=== PATIENT | male | born 1945 | race Caucasian/White ===

== ENCOUNTER 2018-03-10 00:06 | Emergency (ER) | payer MEDICARE, OTHER ==
[~2018-03-10] VITALS: Ht 177.8 cm; Wt 95.2 kg
[~2018-03-10 00:06] MED LIST: AMIODARONE HCL400 MG PO; ASPIRIN EC81 MG PO; COLACE100 MG PO; FOLIC ACID0.4 MG; HYDROCODON-ACE1 EA14 PO; IRON325 M1 PO; LIPITOR10 MG; LISINOPRIL2.5 MG PO; METOPROLOL TART25 MG PO; PLAVIX75 MG PO; VITAMIN C500 M1 PO; VITAMIN D-32000 UNIT PO
[2018-03-10] MEDS ORDERED: PLAVIX75 MG PO (00:20)
[2018-03-10] MEDS ORDERED: CRESTOR40 MG NG (00:20)
[2018-03-10] MEDS ORDERED: ZETIA10 MG PO (00:22)
--- NOTE | 2018-03-10 22:59 | EKG ---
[facility] [address] [facility] [place] [address] Signed Sinus bradycardia RSR' or QR pattern in V1 suggests right ventricular conduction delay Borderline ECG No previous ECGs available Confirmed by CLAUDIO BAUGH MD ([id number]) on 03/10/2018 10:58:51 PM Electronically Signed By: CLAUDIO BAUGH MD 03/10/18 2259 PATIENT NAME: JOSE ADAM Electrocardiogram DATE OF : 45 PHYSICIAN: CLAUDIO BAUGH MD REPORT #: [id number] REPORT IS CONFIDENTIAL AND NOT TO BE RELEASED WITHOUT AUTHORIZATION
== END 2018-03-10 01:57 | disposition home or self-care (01) ==
LOC: ED 00:06
DX: I49.3 Ventricular premature depolarization (principal); I10 Essential (primary) hypertension; Z79.82 Long term (current) use of aspirin; Z79.899 Other long term (current) drug therapy; Z95.1 Presence of aortocoronary bypass graft
CPT/HCPCS: 71045; 80053; 84484; 85025; 85610; 85730; 93005; 93010; 99285-25

== ENCOUNTER 2023-02-14 16:33 | Inpatient (IN) | payer MEDICARE, OTHER ==
[~2023-02-14] VITALS: Ht 177.8 cm; Wt 101.6 kg
--- NOTE | ~2023-02-14 | EKG ---
[facility] [address] [facility] [place], [place] [address] Draft EKG completed, results pending confirmation PATIENT NAME: KIAJOSE Electrocardiogram DATE OF : 45 PHYSICIAN: PRELIMINARY REPORT #: [id number] REPORT IS CONFIDENTIAL AND NOT TO BE RELEASED WITHOUT AUTHORIZATION
[~2023-02-14 16:33] MED LIST changes: +ADULT ASPIRIN R81 MG PO; -ASPIRIN EC81 MG PO; +CRESTOR40 MG NG; -VITAMIN D-32000 UNIT PO; +VITAMIN D350 MC3 PO; +ZETIA10 MG PO
[2023-02-14] MEDS ORDERED: LOSARTAN POTASS25 MG PO (16:53)
[2023-02-14 19:03] LABS: BASOPHILS 0.3 % (0-2); EOSINOPHILS 0.2 % (0-6); HEMATOCRIT 41.7 % (35.0-50.0); HEMOGLOBIN 13.7 g/dL (12.0-18.0); LYMPHOCYTES 11.9 % (24-44); MCH 30.5 (27-36); MCHC 32.7 g/dl (30-36); MCV 93.2 fl (81-99); MONOCYTES 7.4 % (0-12); NEUTROPHILS 80.2 % (39-80); PLATELET COUNT 239 K/uL (140-440); RBC 4.48 M/ul (4.3-5.7); RDW 13.7 (10.5-15.0)
[2023-02-14 19:14] LABS: ALBUMIN 4.2 g/dL (3.4-5.0); ALBUMIN/GLOBULIN RATIO 1.24 (1.1-2.4); ANION GAP 14.6 (7-21); BILIRUBIN, TOTAL 0.8 ng/dL (0.2-1.0); BUN/CREATININE RATIO 19.19 (6.0-28.6); CALCIUM 9.2 mg/dL (8.5-10.1); CREATININE, SERUM 0.99 mg/dL (0.70-1.30); POTASSIUM 4.6 mmol/L (3.5-5.1); PROTEIN, TOTAL 7.6 g/dL (6.4-8.2)
[2023-02-14 22:08] LABS: BILIRUBIN, URINE NEGATIVE (negative); BLOOD/HGB, URINE NEGATIVE (Negative); KETONE, URINE TRACE (Negative); LEUK ESTERASE, URINE NEGATIVE (negative); NITRITE, URINE NEGATIVE (negative); PH, URINE 5.5 (5-7)
[2023-02-14 23:26] LABS: INFLUENZA B NAA NEGATIVE (NEGATIVE); RESPIRATORY SYNCYTIAL VIR NAA NEGATIVE (NEGATIVE)
--- NOTE | 2023-02-14 23:30 | NUR ---
PT TRANSPORTED TO 128 VIA STRETCHER BY PAULA RODRIGUEZ. PT A&O X4.
[2023-02-15] VITALS (18 sets, daily range): BP systolic 95–122; BP diastolic 49–74
[2023-02-15 00:09] LABS: BASOPHILS 0.2 % (0-2); HEMATOCRIT 41.4 % (35.0-50.0); HEMOGLOBIN 13.5 g/dL (12.0-18.0); LYMPHOCYTES 6.1 % (24-44); MCH 30.6 (27-36); MCHC 32.7 g/dl (30-36); MCV 93.6 fl (81-99); MONOCYTES 5.9 % (0-12); NEUTROPHILS 87.8 % (39-80); PLATELET COUNT 224 K/uL (140-440); RBC 4.42 M/ul (4.3-5.7); RDW 13.8 (10.5-15.0)
--- NOTE | 2023-02-15 00:53 | NUR ---
ADMISSION ASSESSMENT COMPLETE. PT DAUGHTER ARTURO ROOMING IN OVERNIGHT. PT REQUESTED AND PROVIDED PAIN MEDICATION PER EMAR. PT ORIENTED TO UNIT. PT VERBALIZES UNDERSTANDING TO USE CALL LIGHT WITH NEEDS. BED IN LOW, LOCKED POSITION. SCD'S IN PLACE, PT EDUCATED TO PURPOSE. PT DENIES ADDITIONAL QUESTIONS OR NEEDS AT THIS TIME. VSS AND NAD NOTED VIA PT STATEMENT, DIRECT OBS AND CONTINUOUS MONITOR.
--- NOTE | 2023-02-15 02:11 | NUR ---
PT RESTING IN BED WITH EYES CLOSED. VSS PER CONTINUOUS MONITOR. DAUGHTER ROOMING IN. CALL LIGHT IN REACH.
--- NOTE | 2023-02-15 04:10 | NUR ---
SHIFT ASSESSMENT COMPLETE. SEE [facility]. PT 02 SAT 87-88% ON RA WHILE SLEEPING. PT PLACED ON 1L NC TO MAINTAIN O2 SAT >90%. PT EDUCATED TO NEED FOR O2 SUPPORT. PT DENIES PREVIOUS DIAGNOSIS OF MARIAMA. PT STATES PER HE DOES SNORE. PT DENIES ADDITIONAL NEEDS. DAUGHTER AT BEDSIDE. CALL LIGHT IN REACH. BED IN LOW, LOCKED POSITION. SCD'S IN PLACE. MAINTENANCE FLUIDS INFUSING PER ORDERS IN PATENT PIV.
[2023-02-15 05:29] LABS: BASOPHILS 0.2 % (0-2); EOSINOPHILS 0.1 % (0-6); HEMATOCRIT 34.5 % (35.0-50.0); HEMOGLOBIN 11.9 g/dL (12.0-18.0); LYMPHOCYTES 11.1 % (24-44); MCHC 34.5 g/dl (30-36); MCV 92.8 fl (81-99); MONOCYTES 9.9 % (0-12); NEUTROPHILS 78.7 % (39-80); PLATELET COUNT 197 K/uL (140-440); RBC 3.72 M/ul (4.3-5.7); RDW 13.8 (10.5-15.0)
[2023-02-15 05:50] LABS: ALBUMIN 3.2 g/dL (3.4-5.0); ALBUMIN/GLOBULIN RATIO 1.1 (1.1-2.4); ANION GAP 14.4 (7-21); BILIRUBIN, TOTAL 0.7 ng/dL (0.2-1.0); BUN/CREATININE RATIO 21.05 (6.0-28.6); CALCIUM 8.2 mg/dL (8.5-10.1); CREATININE, SERUM 0.95 mg/dL (0.70-1.30); POTASSIUM 4.4 mmol/L (3.5-5.1); PROTEIN, TOTAL 6.1 g/dL (6.4-8.2)
--- NOTE | 2023-02-15 07:19 | NUR ---
REPORT GIVEN AND CARE ENDORSED TO ONCOMING SHIFT RNS. PT VSS AND NAD NOTED VIA CONTINUOUS MONITOR. ALL QUESTIONS ANSWERED.
--- NOTE | 2023-02-15 08:15 | NUR ---
VITALS AND I&OS CHARTED. PATIENT AWAKE AND LYING ON BED, USING CELL PHONE. DAUGHTER IN ROOM. PATIENT IS NPO, TOOTHPASTE AND WASHCLOTH PROVIDED. PATIENT STANDS AT SIDE OF BED TO USE URINAL
--- NOTE | 2023-02-15 08:28 | NUR ---
UR NOTE MCG GENERAL CRITERIA: OBSERVATION CARE (ISC) 02/14/23 MET OBSERVATION CARE ADMISSION CRITERIA
[2023-02-15] MEDS ORDERED: METOPROLOL SUCC50 MG PO (10:42)
[2023-02-15] MEDS ORDERED: NITROGLYCERIN0.4 MG SL (10:42)
--- NOTE | 2023-02-15 10:52 | NUR ---
Patient sitting up on edge of bed, oxygen in place. Alert and oriented. Spouse at bedside. Demographics verified with patient and spouse. States he has [employer] insurance as well, card copied and sent to admitting. Patient states he lives in single level house with . 2 steps to get inside, no issues using the steps. States he has no DME, does not usually need any. Continues to drive. No financial burdens either. Denies needs at this time, instructed to notify staff if needs arise. Verbalizes understanding.
--- NOTE | 2023-02-15 11:03 | NUR ---
CCU ROUNDS. 30 MINUTES. REFRAMED PT EXPERIENCE. ENCOURAGED ELF CARE. PROVIDED HOSPITALITY. LISTENED EMPATHETICALLY. LEFT WHEN RESEARCH PROGRAM ASSISTANT SILVIA CAME IN TO TRANSPORT PT TO IMAGING. PROVIDED SILENT PRAYER.
--- NOTE | 2023-02-15 12:49 | NUR ---
MED REC COMPLETE
--- NOTE | 2023-02-15 12:56 | NUR ---
1100 DISCUSSED POC W/ PT AND FAMILY, FAMILY ASKED ABOUT CHANGING DIET ORDER, THIS RN LET THEM KNOW THAT WE WILL REVISIT DIET ORDER AFTER LAB DRAW THIS AFTERNOON. DISCUSSED CXR WITH PT, PROVIDED EDUCATION ABOUT THE IMPORTANCE OF COUGHING & DEEP BREATHING TO PREVENT PNA, PT VERBALIZED UNDERSTANDING OF THIS. CALL LIGHT AND OTHER BELONGINGS IN REACH
[2023-02-15 13:28] LABS: BASOPHILS 1.2 % (0-2); EOSINOPHILS 0.4 % (0-6); HEMATOCRIT 35.5 % (35.0-50.0); HEMOGLOBIN 11.8 g/dL (12.0-18.0); LYMPHOCYTES 15.2 % (24-44); MCH 31.2 (27-36); MCHC 33.1 g/dl (30-36); MCV 94.1 fl (81-99); MONOCYTES 13.4 % (0-12); NEUTROPHILS 69.8 % (39-80); PLATELET COUNT 176 K/uL (140-440); RBC 3.77 M/ul (4.3-5.7)
--- NOTE | 2023-02-15 15:30 | NUR ---
CALLED SURGERY TO TALK TO DR AGUILAR, HE WAS IN A PROCEDURE, ASKED RN TO HAVE HIM CALL CCU WHEN FINISHED TO DISCUSS PT
--- NOTE | 2023-02-15 16:20 | NUR ---
IN TO CHECK ON PT, HE IS RATING HIS PAIN 3/10 ALTHOUGH HE IS WANTING TO GET UP TO USE THE BATHROOM BUT FEARFL OF THE PAIN, PRN OXYCODONE 10MG GIVEN AND PLAN TO GIVE MEDICATION TIME TO WORK AND THEN GET UP TO BATHROOM WELL APPLY ABX OINTMENT TO SCROTUM, PT AGREEABLE.
--- NOTE | 2023-02-15 16:55 | NUR ---
IN TO CHECK ON PT AND HE IS SLEEPING, HR 103, RR 16.
--- NOTE | 2023-02-15 20:45 | NUR ---
REPORT TAKEN FROM PREVIOUS SHIFT. PT IS RESTING IN BED WITH FAMILY AT BEDSIDE. PT ASSESSED, VITAL SIGNS WITHIN NORMAL LIMITS. PT DENIES ANY PAIN AT THIS TIME. PT STANDING AT BEDSIDE, UP TO USE THE URINAL. PT IS STEADY ON FEET. ALL QUESTIONS AND CONCERNS ARE ADDRESSED AT THIS TIME. 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 LOPRESSOR HELD, PT IS BRADYCARDIC AND SLIGHTLY HYPOTENSIVE. PT BED IS LOWERED AND LOCKED, 2/4 BED SIDERAILS IN USE. CALL LIGHT WITH IN REACH.
--- NOTE | 2023-02-15 22:00 | NUR ---
PT IS RESTING IN BED. NO COMPLAINTS OF PAIN AT THIS TIME. VITAL SIGNS ARE WITH IN PATIENTS NORMAL LIMITS. ALL QUESTIONS AND CONCERNS ADDRESSED. CALL LIGHT IS WITHIN REACH. BED IS LOWERED AND LOCKED, 2/4 BED SIDERAILS IN USE.
[2023-02-16] VITALS: BP 99/51
--- NOTE | 2023-02-16 | NUR ---
PT IS RESTING IN BED. NO COMPLAINTS OF PAIN AT THIS TIME. PT SITTING ON THE SIDE OF THE BED AFTER USING URINAL AND REPOSITIONED BACK IN BED. VITAL SIGNS WITH IN PTS NORMAL RANGE. PT ASSESSED. ALL QUESTIONS AND CONCERNS ADDRESSED. CALL LIGHT IS WITH IN REACH. PT IS WEARING ANTI-SLIP SOCKS. BED IS LOWERED AND LOCKED WITH 2/4 SIDERAILS UP.
[2023-02-16 02:00] VITALS: BP 116/40
--- NOTE | 2023-02-16 02:15 | NUR ---
PT IS RESTING IN BED AT THIS TIME. NO COMPLAINTS OF PAIN AT THE MOMENT. VITAL SIGNS ARE REVIEWED. ALL QUESTIONS AND CONCERNS ADDRESSED. CALL LIGHT IS WITH IN REACH. ANTI-SLIP SOCKS ARE IN USE, BED IS LOWERED AND LOCKED. 2/4 BEDSIDE RAILS ARE IN USE.
[2023-02-16 04:00] VITALS: BP 113/62
--- NOTE | 2023-02-16 04:00 | NUR ---
PT IS RESTING IN BED. PT DENIES ANY PAIN AT THIS TIME. VITAL SIGNS ARE REVIEWED AND WITH IN NORMAL LIMITS FOR THE PATIENT. ASSESSMENT COMPLETED. ALL QUESTIONS AND COCNERNS ADDRESSED AT THIS TIME. CALL LIGHT IS WITH IN REACH. BED IS LOWERED AND LOCKED, 2/4 BED SIDE RAILS ARE IN USE. PT IS WEARING ANTI-SLIP SOCKS.
[2023-02-16 05:49] LABS: BASOPHILS 0.2 % (0-2); HEMATOCRIT 34.3 % (35.0-50.0); HEMOGLOBIN 11.6 g/dL (12.0-18.0); LYMPHOCYTES 20.8 % (24-44); MCH 31.6 (27-36); MCHC 33.9 g/dl (30-36); MONOCYTES 12.2 % (0-12); NEUTROPHILS 65.8 % (39-80); PLATELET COUNT 154 K/uL (140-440); RBC 3.69 M/ul (4.3-5.7); RDW 13.7 (10.5-15.0)
--- NOTE | 2023-02-16 06:05 | NUR ---
PT IS UP TO CHAIR, PT USED URINAL INDEPENDENTLY. VITAL SIGNS ARE REVIEWED. PT WAS IN A DEEP SLEEP AT ONE POINT AND OXYGEN DESATURATED, 2L NC WAS APPLIED FOR WHEN HE IS ASLEEP BUT PT WAS UNABLE TO FALL BACK TO SLEEP AND IS NOW BACK ON ROOM AIR WITH ADEQUATE SPO2 READINGS. ALL QUESTIONS AND CONCERNS ADDRESSED AT THIS TIME. NO COMPLAINTS OF PAIN AT THE MOMENT. CALL LIGHT IS WITHIN REACH. ANTI-SLIP SOCK ARE IN USE.
[2023-02-16 06:10] VITALS: BP 127/63
--- NOTE | 2023-02-16 07:30 | NUR ---
REPORT RECEIVED. PATEINT IS SITTING UP IN CHAIR. IVF PATENT.
--- NOTE | 2023-02-16 08:00 | NUR ---
ASSESSMENT DONE. DENIES PAIN AT THIS TIME, DENIES NAUSEA, PATIENT STATES HE FEELS GOOD. SKIN IS WARM AND DRY. HAS MILD TENDERNESS IN LOWER ABD WITH PALPATION. TALKED WITH PATIENT ABOUT POC FOR DAY, INDICATES UNDERSTANDING. CONTINUES TO SIT IN CHAIR. READY FOR BREAKFAST.
[2023-02-16 08:24] VITALS: BP 125/58
--- NOTE | 2023-02-16 09:00 | NUR ---
TOOK BREAKFAST WELL.
--- NOTE | 2023-02-16 09:20 | NUR ---
AMBULATED TO BR TO HAVE BM AND VOID. BACK TO CHAIR W/O INCIDENT. DENIES DIZZNESS WITH AMBULATION, IS STABLE ON FEET.
--- NOTE | 2023-02-16 10:20 | NUR ---
ROUTINE MEDICATIONS GIVEN. PATIENT REMAINS IN CHAIR.
[2023-02-16 11:55] VITALS: BP 135/68
--- NOTE | 2023-02-16 13:36 | NUR ---
SITTING UP IN CHAIR. HAS BEEN MOVING AROUNG IN ROOM W/O ASSIST.
--- NOTE | 2023-02-16 14:00 | NUR ---
DR. MARCELINO HERE TO SEE PATIENT, DISCHARGE ORDERS RECEIVED. IVF DC'D WITH CATH INTACT, MONITOR DC'D.
[2023-02-16] MEDS ORDERED: ACETAMINOPHEN500 MG PO (14:04)
--- NOTE | 2023-02-16 14:22 | HP ---
[facility] [address] [place], [place] [address] Signed ADMISSION DATE: 02/14/2023 TIME: 11:00 p.m. 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 He is known to me from the past socially.. Today, at approximately 3:00 p.m. (now 11:00 p.m.) he had sudden onset of diffuse right mid abdominal pain. This included some back pain. The patient was unable to attend his [facility] [employer] party, which was this evening. His symptoms worsened somewhat and he presented to the emergency room at approximately 4:00 p.m. or so. Due to congestion and flow in the emergency room, he was evaluated approximately 2 hours later and found on evaluation to have an elevated white count of 14.1 with a normal hematocrit. He was considered likely to have appendicitis as he had complaints and some tenderness related to the right lower quadrant. A CT scan of the abdomen was undertaken by Dr. Jiménez, which showed no evidence of appendicitis, but did show what was interpreted as a 3.8 cm hyperdense right adrenal mass, which may represent hemorrhage, but could not exclude underlying adenoma or other tumor. There are consolidative opacities within the left lower lobe consistent with possible pneumonia. An infrarenal aortic aneurysm 3.2 cm in size was noted without evidence of rupture or leakage and gallstones noted as well. There was no sign of acute cholecystitis. The patient has had episodic right subscapular pain following meals for quite some time. Never debilitating and likely related to his gallstones. Review of the CT scan interpretation described "hyperdense fat stranding changes within the right perirenal space and surrounding right adrenal gland as described with no sign of intraabdominal free fluid, free air or loculated fluid collection." PAST MEDICAL HISTORY: Notable for coronary artery disease having undergone coronary stenting in the past. He does have underlying hypertension, which is well managed with oral agents. He has no family history that he knows of pheochromocytoma or other adrenal tumor. FAMILY HISTORY: Notable for bladder cancer in his father (the late, Otilio Adam) who underwent Electronically Signed By: DAISY MARCELINO MD 02/16/23 1422 PATIENT NAME: JOSE ADAM HISTORY AND PHYSICAL DATE OF : 45 REPORT #: [id number] PHYSICIAN: DAISY MARCELINO MD PCP: NO PRIMARY CARE PHYSICIAN REPORT IS CONFIDENTIAL AND NOT TO BE RELEASED WITHOUT AUTHORIZATION [facility] [address] [place] [id number] Signed cystectomy. REVIEW OF SYSTEMS: He denies any shortness of breath or chest pain. He has no significant ongoing pain at this time, though he has been treated with morphine for pain relief. He has had no nausea or vomiting. He has no left-sided abdominal pain complaint. PHYSICAL EXAMINATION: Pulse: 78 BP : 123/77 GENERAL: Pleasant white man, who does not look to be systemically toxic. He is accompanied by his , his son and other family members including grandchildren. Neck : no mass or thyromegally. NO hoarseness. Chest : clear without wheeze or rhonchi Abdomen: mild right abdominal tenderness... no ascites and no peritonitis. Most tender to deep palpabtion in the right subcostal area. EXtremities: no clubbing cyanosis or edema. LABORATORY DATA: His white count was 14.1, hematocrit 41.7, platelets 239,000. Chem profile essentially normal. BUN is 19, creatinine is 0.99, glucose 151. Liver enzymes normal. Troponin 4.6, considered normal. Urinalysis is noted to be normal. A COVID-19 test is pending. ASSESSMENT: The patient has signs and symptoms most consistent with possible intra tumor hemorrhage of the right 3.8 cm adrenal mass. There is no sign of diffuse bleeding in the retroperitoneum or perirenal space, though there is secondary inflammatory change based on the CT scan. He is hemodynamically stable at this time and is not known to have severe hypertension leading up to this time. He does have low-grade mid abdominal pain. It is highly probable that his episodic right subscapular pain is related to gallstones, which were identified today on CT scan, but not associated with acute cholecystitis at least by radiographic findings. Options of management at this time included admission to the intensive care unit for close monitoring and possible repeat imaging in the morning depending on his clinical course. He likely will need to have right adrenalectomy in due course. It would be preferable not to do this at the time of acute hemorrhage due to inflammatory changes and the particular anatomy of short right renal vein in relation to adrenalectomy. On the other hand, if he should have significant decompensation, he might require emergency exploration and control of hemorrhage. Options for transfer this evening for further observation elsewhere have been reviewed Electronically Signed By: DAISY MARCELINO MD 02/16/23 1422 PATIENT NAME: JOSE ADAM HISTORY AND PHYSICAL DATE OF : 45 REPORT #: [id number] PHYSICIAN: DAISY MARCELINO MD PCP: NO PRIMARY CARE PHYSICIAN REPORT IS CONFIDENTIAL AND NOT TO BE RELEASED WITHOUT AUTHORIZATION [facility] [address] [place], [place] [address] Signed with him. He would prefer to stay here if possible and reconsideration of additional management in the morning depending on his clinical course. I think that is reasonable and I would be prepared to perform emergency operation should it be required. He will be maintained in an n.p.o. status except for a few sips of liquids for comfort. Close monitoring of his vital signs and repeat CBC would be undertaken as well. Brief review of the literature shows, there are cases reported of those with COVID infection that have experienced spontaneous adrenal hemorrhage and although, he has no stigmata of acute COVID disease, he as all other patients that presented to the emergency room would be at risk for COVID infection concurrently. He will be tested for it. He was fully vaccinated for it and has not had covid in the past. I have reviewed this with the patient and his and family and they agree with this approach to review with Dr. Jiménez, who agrees as well. MD MATT Howe/WARREN /[id number] cc: Dr. Jiménez Copies: ~ Electronically Signed By: DAISY MARCELINO MD 02/16/23 1422 PATIENT NAME: JOSE ADAM HISTORY AND PHYSICAL DATE OF : 45 REPORT #: [id number] PHYSICIAN: DAISY MARCELINO MD PCP: NO PRIMARY CARE PHYSICIAN REPORT IS CONFIDENTIAL AND NOT TO BE RELEASED WITHOUT AUTHORIZATION
--- NOTE | 2023-02-16 15:20 | NUR ---
DISCHARGED TO HOME.
--- NOTE | 2023-02-18 15:24 | DS ---
[facility] [address] [place], [place] [address] Signed ADMISSION DATE: 02/14/2023 DISCHARGE DATE: 02/16/2023 REASON FOR ADMISSION: Hemorrhagic right adrenal gland. 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 He is known to me from the past socially. On the day of admission, approximately 3:00 p.m. (I saw him at approximately 11:00 p.m.) he had the sudden onset of diffuse right abdominal pain including some right posterior subscapular pain. The patient was unable to attend his [employer] party which was the same evening. His symptoms worsened after he presented to the emergency room at approximately now. Due to overflowing workload in the emergency room, he was evaluated nearly 2 hours later and found on evaluation of an elevated white count of 14.1 with a normal hematocrit. He was considered to have possible appendicitis as he had complaints of pain in the right mid abdomen and to some degree lower abdomen. A CT scan of the abdomen was undertaken by Dr. Romero, emergency room physician, which showed no evidence of appendicitis, but did confirm findings of a 3.8 cm hyperdense right adrenal mass, likely to have associated hemorrhage. A concurrent tumor was considered likely as well. Consolidative opacities within the left lower lobe consistent with possible pneumonia were noted, though he had no symptoms or signs of pneumonia. Incidental finding of an infrarenal aortic aneurysm 3.2 cm in size was also noted with no sign of rupture or leakage and multiple gallstones without associated cholecystitis were also noted on the CT scan. 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 PAST MEDICAL HISTORY: Notable for coronary artery disease having undergone coronary stenting and subsequent coronary artery bypass grafting. Initial coronary interventions were greater than 20 years ago. He does have underlying hypertension which was well managed with oral agents. His primary care physician locally has retired and he has no local physician. He does see physician aide at [facility] in [place], [place], who refill his medicines. The patient was admitted for further evaluation and care on the basis of his hemorrhagic right adrenal mass. PERTINENT PHYSICAL EXAMINATION: GENERAL: Showed a pleasant white man who did not look systemically toxic. Electronically Signed By: DAISY MARCELINO MD 02/18/23 1524 PATIENT NAME: JOSE ADAM DISCHARGE SUMMARY DATE OF : 45 REPORT #: [id number] PHYSICIAN: DAISY MARCELINO MD PCP: NO PRIMARY CARE PHYSICIAN REPORT IS CONFIDENTIAL AND NOT TO BE RELEASED WITHOUT AUTHORIZATION [facility] [address] [place], [place] [address] Signed NECK: Trachea is midline. CHEST: Clear. HEART: Regular. ABDOMEN: Showed mild tenderness in the right mid abdomen. He did not have generalized peritonitis. He had no ascites clinically. EXTREMITIES: Show no clubbing, cyanosis, or edema. LABORATORY STUDIES: Showed a white count of 14.1, hematocrit 41.7, and platelets 239,000. Chem profile was normal. BUN was 19, creatinine 0.99, glucose 151. Liver enzymes were normal. Troponin 4.6 (normal). Urinalysis was normal and COVID-19 test was negative. HOSPITAL COURSE: The patient was admitted to the Intensive Care Unit and COVID-19 testing was undertaken on the knowledge that prior COVID infection can be associated with adrenal hemorrhage. He was hemodynamically stable. A repeat hematocrit was obtained at 5 o'clock in the morning after admission, which was 34.5. A repeat CT scan was undertaken, which showed some increase in possible hemorrhage related to the right adrenal but no profound change really. There is some inflammatory change in the right hemidiaphragm as would be expected and the right base of the lung as well. Consultation was undertaken with Dr. Tito Whitmore at [facility] in [place], whom I know well and has special expertise in adrenal interventions. He noted that in general terms ongoing hemorrhage would be controlled by embolization rather than operative intervention. The patient remained hemodynamically stable and his hematocrit as well stayed stable. He was advanced in his diet which he tolerated well. Avoidance of oral intake of aspirin was undertaken under the circumstances. He is able to be discharged at this time as he now tolerates regular diet. His pain is essentially resolved and he is hemodynamically stable. He will likely require right adrenalectomy for the nearly 4 cm mass associated with this process. A serum metanephrine was obtained but remains pending at the time of discharge. The patient has had no difficulty with control of his usual hypertension it is noted. The plan of discharge is to repeat the CT scan in the early timeframe February 22Saturday. I will see him in the week of March. I will be available to him should his symptoms recur or he should have other problems. At our visit, we will have a consolidative meeting to review CT scan findings, serum metanephrine levels and his clinical course and at that point arrange referral to Dr. Tito Whitmore in [place] for further management. It is anticipated that adrenalectomy would not be performed for Electronically Signed By: DAISY MARCELINO MD 02/18/23 1524 PATIENT NAME: KIAJOSE NEGRETE DISCHARGE SUMMARY DATE OF : 45 REPORT #: [id number] PHYSICIAN: DAISY MARCELINO MD PCP: NO PRIMARY CARE PHYSICIAN REPORT IS CONFIDENTIAL AND NOT TO BE RELEASED WITHOUT AUTHORIZATION [facility] [address] [place], [place] [address] Signed several months, so as to allow the acute inflammatory process related to hemorrhage subtle. DISCHARGE MEDICATIONS: Will include: 1. Tylenol 1000 mg p.o. q.6 hours p.r.n. pain #30, refill 1. 2. Vitamin D 550 mcg p.o. daily. 3. Crestor 40 mg p.o. daily. 4. Zetia 10 mg p.o. at bedtime for hypercholesterolemia. 5. Losartan 25 mg p.o. daily. 6. Nitroglycerin 0.4 mg tabs sublingual as needed for chest pain. 7. Metoprolol extended release 50 mg p.o. daily. He will hold off on aspirin intake for the time being and will restart after seeing it in the office and known to be clear of any hazard of bleeding. 8. The patient is advised to avoid vigorous activity, particularly jumping or sudden deceleration type activities. DISCHARGE DIAGNOSES: 1. Right nearly 4 cm adrenal mass with hemorrhage, now stable and not progressing. 2. Incidentally noted infrarenal aortic aneurysm 3.2 cm in size without associated leak or inflammation. 3. Incidental finding of gallstones, though likely symptomatic episodically. 4. History of coronary artery disease status post stenting and ultimately coronary artery bypass grafting greater than 20 years ago. 5. Dyslipidemia. 6. Hypertension. MD MATT Howe/MODL /[id number] cc: MD Tito Hunter MD Electronically Signed By: DAISY MARCELINO MD 02/18/23 1524 PATIENT NAME: JOSE ADAM DISCHARGE SUMMARY DATE OF : 45 REPORT #: [id number] PHYSICIAN: DAISY MARCELINO MD PCP: NO PRIMARY CARE PHYSICIAN REPORT IS CONFIDENTIAL AND NOT TO BE RELEASED WITHOUT AUTHORIZATION [address] [address] Signed Copies: ROSELYN CONN MD, THOMAS R MD ~ Electronically Signed By: DAISY MARCELINO MD 02/18/23 1524 PATIENT NAME: JOSE ADAM DISCHARGE SUMMARY DATE OF : 45 REPORT #: [id number] PHYSICIAN: DAISY MARCELINO MD PCP: NO PRIMARY CARE PHYSICIAN REPORT IS CONFIDENTIAL AND NOT TO BE RELEASED WITHOUT AUTHORIZATION
[2023-02-19 13:19] LABS: METANEPHRINE 0.49 nmol/L (0.00-0.49); NORMETANEPHRINE 0.57 nmol/L (0.00-0.89)
== END 2023-02-16 15:20 | disposition home or self-care (01) | DRG 643 ==
LOC: ED 16:33 → CCU 16:34 → ED 16:34 → CCU 23:22
PROVIDERS: Internal Medicine; ADMIT Surgery; ATTEND Surgery
DX: E27.49 Other adrenocortical insufficiency (principal); J18.9 Pneumonia, unspecified organism; I10 Essential (primary) hypertension; K80.20 Calculus of gallbladder without cholecystitis without obstruction; I48.91 Unspecified atrial fibrillation; E78.5 Hyperlipidemia, unspecified; I71.43 Infrarenal abdominal aortic aneurysm, without rupture; I25.10 Atherosclerotic heart disease of native coronary artery without angina pectoris; Z95.5 Presence of coronary angioplasty implant and graft; Z95.1 Presence of aortocoronary bypass graft; Z86.79 Personal history of other diseases of the circulatory system; Z90.89 Acquired absence of other organs; Z79.02 Long term (current) use of antithrombotics/antiplatelets; Z79.82 Long term (current) use of aspirin; Z79.899 Other long term (current) drug therapy
CPT/HCPCS: 36415; 71046; 74177; 80053; 81003; 83835; 84484; 85025; 87502; 93005; 93010; 96375; 96376; 99285-25; A9270; J0692; J1885; J2270; J2405; J7121; Q9967; U0002